=== PATIENT | male | born 1935 | race Caucasian/White ===

== ENCOUNTER → 2016-07-01 | Outpatient (CLI) | payer MEDICARE, OTHER ==
--- NOTE | ~2016-07-01 | US77 ---
[facility] A Service of [facility] RADIOLOGY TEXT RESULTS PATIENT: TORIBIO BARBOUR LOCATION: [facility] : 33 UNIT #: [id number] AGE: [address]: Chavo Wood MD SEX: M ORDER DR: [id number] [facility] [place], [place] [address] [id number] O MR#: [id number] Acc #: [id number] NAME: TORIBIO BARBOUR : 1935 SEX: M STUDY DATE/TIME: 07/01/2016 14:44 UNIT: [facility] ROOM: STUDY DESCRIPTION: US Kidney Bilateral Complete Attending Physician: Chavo Wood M.D. Referring Physician: Chavo Wood M.D. Ordering Physician: Chavo Wood M.D. Primary Care Physician: Yossi Hernandez M.D. MEDICAL IMAGING REPORT This report is preliminary unless electronic signature is present EXAM Renal ultrasound. DATE OF EXAM 07/01/2016 INDICATIONS 80-year-old male with history of hematuria for 2 days. COMPARISON No comparisons. FINDINGS The right kidney measures 8.7 cm in length. The left kidney measures 8.1 cm in length. There is cortical thinning in the left kidney with respect to the right. There is a small cyst in the left kidney measuring about 1 cm in greatest dimension. No hydronephrosis. No shadowing calculus. Urinary bladder is filled with urine and there is marked prostatomegaly. IMPRESSION 1. No hydronephrosis or shadowing calculi. 2. Small kidneys with cortical thinning on the left. 3. Marked prostatomegaly. Dictated by... Danilo Huffman M.D. THIS IS AN ELECTRONICALLY VERIFIED REPORT Danilo Huffman M.D. at 07/02/2016 5:07 PM [place]/desiree TD: 07/01/2016 21:24 JOB #: [id number] [facility] A Service of [facility] RADIOLOGY TEXT RESULTS PATIENT: TORIBIO BARBOUR LOCATION: [facility] #: [id number] : 33 UNIT #: [id number] AGE: [address]: Chavo Wood MD SEX: M ORDER DR: MEDICAL IMAGING REPORT COPY
== END | disposition home or self-care (01) ==
LOC: CGUS 13:55
DX: R31.21 Asymptomatic microscopic hematuria (principal); N50.819 Testicular pain, unspecified; N40.0 Benign prostatic hyperplasia without lower urinary tract symptoms
CPT/HCPCS: 76770